=== PATIENT | male | born 1990 | race Caucasian/White ===

== ENCOUNTER 2018-02-10 19:37 | Emergency (ER) | payer SELFPAY ==
[~2018-02-10] VITALS: Ht 177.8 cm; Wt 87.3 kg
[2018-02-10 19:50] VITALS: Ht 177.8 cm; Wt 87.3 kg
[2018-02-10] MEDS ORDERED: NORCO 7.5/325 T1 TA1 PO (20:47)
[2018-02-11 00:15] VITALS: BP 130/84
[2018-02-12] MEDS ORDERED: HYDROCODONE-APA1 TAB PO (22:06)
== END 2018-02-11 00:16 | disposition home or self-care (01) ==
LOC: D.ER 19:37
DX: T23.202A Burn of second degree of left hand, unspecified site, initial encounter (principal); X08.8XXA Exposure to other specified smoke, fire and flames, initial encounter; Y93.89 Activity, other specified; Y92.019 Unspecified place in single-family (private) house as the place of occurrence of the external cause

== ENCOUNTER 2018-02-12 20:27 | Emergency (ER) | payer SELFPAY ==
[~2018-02-12] VITALS: Ht 177.8 cm; Wt 86.4 kg
[~2018-02-12 20:27] MED LIST: NORCO 7.5/325 T1 TA1 PO
[2018-02-12 20:35] VITALS: Ht 177.8 cm; Wt 86.4 kg
[2018-02-12] MEDS ORDERED: HYDROCODONE-APA1 TAB PO (22:06)
[2018-02-12 22:19] VITALS: BP 164/92
== END 2018-02-12 21:17 | disposition home or self-care (01) ==
LOC: D.ER 20:27
DX: T23.232D Burn of second degree of multiple left fingers (nail), not including thumb, subsequent encounter (principal); X08.8XXD Exposure to other specified smoke, fire and flames, subsequent encounter; F17.200 Nicotine dependence, unspecified, uncomplicated